=== PATIENT | male | born 1960 | race Caucasian/White ===

== ENCOUNTER 2024-07-15 17:36 | Emergency (ER) | payer OTHER, SELFPAY ==
--- NOTE | ~2024-07-15 | XR_ITS ---
CLINICAL HISTORY: pain, injury 4 view right hand Comparison: None Findings: Small avulsion fracture of the right thumb proximal phalangeal base laterally. No significant arthritic change. No erosions. No radiopaque foreign body. IMPRESSION: 1. Small avulsion fracture of the right thumb proximal phalangeal base laterally. This document has been electronically signed by: Edi Flores MD on 07/15/2024 20:39:38
--- NOTE | ~2024-07-15 | CT_ITS ---
CLINICAL HISTORY: fall, head strike, pain CT cervical spine without contrast Comparison: None Findings: Vertebral alignment is within normal limits. Moderate multilevel spondylosis with disc space narrowing, osteophytosis, most notably C5-C6 and C6-C7 levels. No acute fractures or dislocations. No acute findings on limited view of the intracranial contents. No cervical fluid collections or masses. Lung apices are clear. IMPRESSION: No acute findings. Moderate spondylosis at C5-C6 and C6-C7 levels. This document has been electronically signed by: Edi Flores MD on 07/15/2024 20:51:50
--- NOTE | ~2024-07-15 | CT_ITS ---
CLINICAL HISTORY: fall, head strike, pain CT head without contrast Comparison: None Findings: No intra-axial mass, midline shift, hydrocephalus, or acute hemorrhage. No significant atrophy-like change or white matter disease. There is no sinus or mastoid fluid. The orbits are unremarkable. No skull fracture. Small left frontal scalp hematoma. IMPRESSION: 1. No acute intracranial findings specifically, no acute intracranial hemorrhage. 2. Small left frontal scalp hematoma. This document has been electronically signed by: Edi Flores MD on 07/15/2024 21:24:46
[2024-07-15 18:18] VITALS: BP 143/87; PULSE 94; RESP 18; TEMP 36.7; O2SAT 97; BMI 25.4
--- NOTE | 2024-07-15 18:21 | ED_ITS ---
HPI - General Adult General Chief complaint: Fall Stated complaint: fell and hit head on concrete Time Seen by Provider: 07/15/24 22:45 Source: patient Mode of arrival: ambulatory Limitations: no limitations History of Present Illness ED Provider: Carol Barrios NP HPI narrative: Patient is a 63-year-old male presents emergency department for evaluation after mechanical slip and fall on the ice this evening with resultant head strike to the left side but no loss of consciousness. He denies use of anticoagulants or known coagulation disorders. He reports that his right hand bent backwards and he is endorsing pain particularly along the base of his right thumb. Denies any numbness tingling or cold sensation to the hand. He denies any headache, dizziness, lightheadedness, vision changes, neck pain, neck stiffness. No additional pain. Denies any preceding symptoms prior to the fall reporting it to be strictly mechanical in nature due to the ice. Related Data Allergies Allergy/AdvReac Type Severity Reaction Status Date / Time No Known Allergies Allergy Verified 07/15/24 18:22 Review of Systems Review of Systems: Yes all other systems are reviewed and are negative [facility] Past Medical History Attestation statement: The following information was validated with the patient. Source: old records reviewed Social History Social History Smoked in Last 30 Days: No Use of substances other than those prescribed or required for medical reasons: No Advance Directives: No Advance Directives Information Provided: No Do you have a plan to hurt others: No Plan Physical Exam ED Vital Signs: Vital Signs - 24 hr 07/15/24 18:18 07/15/24 23:17 Temperature 98.1 F 98.6 F Pulse Rate 94 100 Respiratory Rate 18 17 Blood Pressure 143/87 H 147/81 H Pulse Oximetry 97 100 Oxygen Delivery Method Room Air Room Air BMI result Body Mass Index 25.4 Appearance: Alert.?Oriented to person, place and time. No acute distress.?Normal affect. Head: Left frontal scalp hematoma Eyes: Pupils equal, round and reactive to light. EOMI. Conjunctiva and sclera normal? No Calzada sign noted. No raccoon eyes noted ENT: No septal hematoma, nares patent bilaterally. External auditory canal normal tympanic membrane pearly carrillo and intact bilaterally. Dentition normal, no fractured teeth. No lesions or lacerations of oropharynx. Uvula midline. Moist mucous membranes. Neck: Normal inspection.? Neck supple.??No palpable tenderness, step-off, deformities. CVS: Heart sounds normal. Normal heart rate and rhythm.? Pulses normal.?? Respiratory: No respiratory distress.? Lung sounds clear to auscultation bilaterally?? Abdomen: Soft and non-tender. Normoactive bowel sounds. ?? Skin: Skin warm and dry.? Normal skin color.? Normal skin turgor.?? Extremities: No extremity edema. No obvious deformity to the right hand. Localized swelling tenderness upon palpation to the right thumb base Neuro: Moves all extremities spontaneously. Sensation intact bilaterally. CN II- XII intact. No focal neuro deficits. Ambulatory with a steady gait Course Course Course Narrative: RME performed by Carmella Mathur PA-C. Patient is a 63 year old assigned male at presenting to the emergency department with right hand and head pain after a slip and fall on the ice. Patient's physical examination showed swelling to the left scalp just above the left eyerbrow. Detailed physical exam and review of systems are deferred to the pharmacy grad intern. Imaging ordered. Patient placed back in the waiting room pending room availability and results. Procedures Orthopedic Splinting/Casting Injury #1: Side: right Upper Extremity Injury Location: finger Upper Extremity Immobilizer: thumb spica Medical Decision Making Medical Decision Making MDM Narrative: Patient is a 63 year old male presents emergency department for evaluation after a mechanical slip and fall on the snow with resultant head strike but no loss consciousness. No focal neurological deficits. No use of anticoagulants or known coagulation disorders. Has a left frontal scalp hematoma. CT of the head is without ICH, SDH, fracture no acute intracranial pathology. XR of the right hand was obtained, revealing a small avulsion fracture to the left thumb he was placed in a thumb spica cast and remained neurovascularly intact distally after application. He otherwise offers no physical complaints he is ambulatory with a steady gait. Stable for discharge home, outpatient follow-up with primary care provider as needed, orthopedist office to be contacted tomorrow for follow-up. Discussed strict return precautions. Rest over the next few days, acetaminophen/ibuprofen for pain. Reviewed worrisome signs and symptoms that would warrant re-evaluation. Differential Diagnosis Differential Diagnoses: The differential diagnosis associated with the presentation includes (See narrative above) Admission/Observation Consideration of admission/observation: Escalation of care including admission/observation considered Independent Interpretation I performed an independent interpretation of an: Plain X-Ray and CT Scan (No ICH) Radiology Impression Discussion of test interpretation with radiology: I have reviewed the radiologist's reading. Radiologist Impression: 4 view right hand Comparison: None Findings: Small avulsion fracture of the right thumb proximal phalangeal base laterally. No significant arthritic change. No erosions. No radiopaque foreign body. IMPRESSION: 1. Small avulsion fracture of the right thumb proximal phalangeal base laterally. CT cervical spine without contrast Comparison: None Findings: Vertebral alignment is within normal limits. Moderate multilevel spondylosis with disc space narrowing, osteophytosis, most notably C5-C6 and C6-C7 levels. No acute fractures or dislocations. No acute findings on limited view of the intracranial contents. No cervical fluid collections or masses. Lung apices are clear. IMPRESSION: No acute findings. Moderate spondylosis at C5-C6 and C6-C7 levels. CT head without contrast Comparison: None Findings: No intra-axial mass, midline shift, hydrocephalus, or acute hemorrhage. No significant atrophy-like change or white matter disease. There is no sinus or mastoid fluid. The orbits are unremarkable. No skull fracture. Small left frontal scalp hematoma. IMPRESSION: 1. No acute intracranial findings specifically, no acute intracranial hemorrhage. 2. Small left frontal scalp hematoma. External Record Review External record reviewed: Outpatient record Prescription Management I considered prescription management with: Pain Medication Discharge Plan Discharge Clinical Impression: Avulsion fracture of right thumb Qualifiers: Encounter type: initial encounter Fracture type: closed Qualified Code(s): S62.501A - Fracture of unspecified phalanx of right thumb, initial encounter for closed fracture Patient Disposition: Home, Self-Care Instructions: Thumb Fracture (ED) Additional Instructions: You can take ibuprofen 200 mg, 3 tablets (600mg) every 6-8 hours as needed for pain, in addition to Tylenol 500 mg, 2 tablets (1,000mg) every 4-6 hours as needed for pain, but not to exceed 3 doses daily (3,000mg).? Contact orthopedist office tomorrow to arrange for follow-up. Leave the splint in place until evaluated by orthopedics. It can not get wet. Referrals: Cordell Corrales PA [Primary Care Provider] - Print Language: Swazi
[2024-07-15 23:17] VITALS: BP 147/81; PULSE 100; RESP 17; TEMP 37; O2SAT 100
--- NOTE | 2024-07-15 23:20 | PC.NURSE ---
pt a&ox4, respirations even and unlabored. pt reporting slipping and falling at home on ice while shoveling. pt reports head strike denies thinners. pt also reporting left thumb pain at this time. pt noted to have hematoma to the right sided forehead. pt denies n/v/d and vision changes. cms in tact. neuros in tact.
--- NOTE | 2024-07-16 00:24 | PC.NURSE ---
pt noted to be attempting to get out of bed, senior regulatory affairs specialist at bedside, pt medicated per mar with apple sauce. pt assisted with bed change due to pt being incontinent of urine.
[2024-07-16 00:30] VITALS: BP 147/81; PULSE 100; RESP 17; TEMP 37; O2SAT 100
== END 2024-07-16 00:31 | disposition home or self-care (01) ==
PROVIDERS: Emergency Provider Emergency Medicine Emergency Medical Services; PCP Physician Assistant Medical
DX: S62.501A Fracture of unspecified phalanx of right thumb, initial encounter for closed fracture (principal); M25.531 Pain in right wrist; M79.641 Pain in right hand; R51.9 Headache, unspecified; M54.2 Cervicalgia; W00.0XXA Fall on same level due to ice and snow, initial encounter; Y93.89 Activity, other specified; Y92.89 Other specified places as the place of occurrence of the external cause; Y99.8 Other external cause status
CPT/HCPCS: 29130; 70450; 72125; 73110; 73130; 99284

== ENCOUNTER → 2024-07-15 18:22 | Outpatient (BNV) | payer SELFPAY | PROVIDERS: Visit Provider Student in an Organized Health Care Education/Training Program | DX: M47.812 Spondylosis without myelopathy or radiculopathy, cervical region (principal); S00.03XA Contusion of scalp, initial encounter; S62.511A Displaced fracture of proximal phalanx of right thumb, initial encounter for closed fracture; W00.0XXA Fall on same level due to ice and snow, initial encounter; W01.198A Fall on same level from slipping, tripping and stumbling with subsequent striking against other object, initial encounter | CPT/HCPCS: 70450; 72125; 73110; 73130 ==